=== PATIENT | female | born 1935 | race Native Hawaiian/Other Pacific Islander ===

== ENCOUNTER 2016-06-13 07:46 | Emergency (ER) | payer MEDICARE, MEDICAID ==
[2016-06-13 07:52] VITALS: BMI 27.3
[2016-06-13 07:53] VITALS: TEMP 98
[2016-06-13] MEDS ORDERED: Sodium Chloride 0.9% 1,000 ML IV SCH (08:15)
--- NOTE | 2016-06-13 08:19 | C.PDOC ---
History Of Present Illness 80 y/o female, whose PMHx includes hypothyroidism and cholecystectomy, presents to the ED complaining of dizziness x 5 days. [id number] at bedside is translating for the patient who does not speak [place]. Admits to history of vertigo and states the patient usually takes Meclizine with relief but the symptoms remain persistent. She notes that the patient lost her balance and fell which prompted their visit to the ED. She denies any loss of consciousness , head injury, nausea, vomiting, chest pain, shortness of breath, fever, ear pain, or other complaints. Time Seen by Provider: 06/13/16 07:46 Chief Complaint (Nursing): Dizziness/Lightheaded History Per: Patient, Family ([id number]) History/Exam Limitations: language barrier ([id number] translating) Onset/Duration Of Symptoms: Days (5), Gradual, Persistent Current Symptoms Are (Timing): Still Present Possible Causative Factor(s): Vertigo Fall Associated With With Symptoms: Yes Recent travel outside of the [place]: No Past Medical History Reviewed: Historical Data, Nursing Documentation, Vital Signs Vital Signs: Last Vital Signs Temp 98.0 F 06/13/16 07:52 Pulse 67 06/13/16 09:35 Resp 14 06/13/16 09:35 BP 142/70 06/13/16 09:35 Pulse Ox 97 06/13/16 10:00 - Medical History PMH: Arthritis (lbp), Back Problems, Gall Bladder Disease (CHOLECYSTECTOMY 2003) , Hypothyroidism, Osteoporosis Other PMH: vertigo Surgical History: Cholecystectomy (2003) Family History: States: No Known Family Hx - Social History Hx Tobacco Use: No Hx Alcohol Use: No Hx Substance Use: No - Immunization History Hx Tetanus Toxoid Vaccination: No Hx Influenza Vaccination: Yes Hx Pneumococcal Vaccination: No Review Of Systems Except As Marked, All Systems Reviewed And Found Negative. Constitutional: Negative for: Fever ENT: Negative for: Ear Pain Cardiovascular: Negative for: Chest Pain Respiratory: Negative for: Shortness of Breath Gastrointestinal: Negative for: Nausea, Vomiting Neurological: Positive for: Dizziness. Negative for: Other (LOC) Physical Exam - Physical Exam Appears: Non-toxic, No Acute Distress Skin: Normal Color, Warm, Dry, No Ecchymosis Head: Atraumatic, Normacephalic, No Abrasion, No Laceration Eye(s): bilateral: Normal Inspection, PERRL, EOMI Neck: Normal ROM, No Midline Cervical Tenderness, Supple Chest: Symmetrical, No Tenderness Cardiovascular: Rhythm Regular Respiratory: Normal Breath Sounds, No Rales, No Rhonchi, No Wheezing Gastrointestinal/Abdominal: Normal Exam, Soft, No Tenderness Back: Normal Inspection, No Vertebral Tenderness Extremity: Normal ROM, No Tenderness, No Swelling Neurological/Psych: Oriented x3, Normal Speech, Normal Cognition, Normal Cranial Nerves (II-XII intact), Normal Motor, Normal Sensation ED Course And Treatment - Laboratory Results Result Diagrams: 06/13/16 08:22 06/13/16 08:22 Lab Interpretation: Normal ECG: Interpreted By Me ECG Rhythm: Sinus Rhythm ECG Interpretation: Normal, No Acute Changes Rate From EC (bpm) O2 Sat by Pulse Oximetry: 97 (ra) Pulse Ox Interpretation: Normal - CT Scan/US CT Head Other Rad Studies (CT/US): Read By Radiologist (Brock Ramachandran MD), Radiology Report Reviewed CT/US Interpretation: FINDINGS: HEMORRHAGE: No intracranial hemorrhage. BRAIN : No mass effect or edema. Moderate diffuse age-appropriate cerebral atrophy. Mild periventricular white matter lucency consistent with chronic microvascular ischemic change. No evidence of acute infarct. VENTRICLES: Unremarkable. No hydrocephalus. CALVARIUM: Unremarkable. PARANASAL SINUSES: Unremarkable as visualized. No significant inflammatory changes. MASTOID AIR CELLS: Unremarkable as visualized. No inflammatory changes. OTHER FINDINGS: None. IMPRESSION: No intracranial mass, hemorrhage or evidence of acute infarct. Age related atrophy and chronic microvascular white matter ischemic change. Progress Note: Treated with IVF NSS. On re-evaluation ambulating with steady gait. Neuro intact Reassessment Condition: Improved - Physician Consult Information Physician Contacted: Sebas Maurer Outcome Of Conversation: discharge and outpatient follow up Medical Decision Making Medical Decision Making: Plan: * CT Head * EKG * Blood Work * Urinalysis * IV Fluids * * * Ambulating with steady gait, in no distress Disposition Discussed With : Sebas Maurer Doctor Will See Patient In The: Office Counseled Patient/Family Regarding: Studies Performed, Diagnosis, Need For Followup - Disposition Referrals: Sebas Maurer MD [Staff Provider] - Disposition: HOME/ ROUTINE Disposition Time: 10:00 Condition: STABLE Additional Instructions: Follow up with Dr Maurer in 2 days Continue current medications Instructions: Vertigo (ED), Dizziness (ED) - POA Present On Arrival: None - Clinical Impression Clinical Impression: Dizziness - 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 - Scribe Statement The provider has reviewed the documentation as recorded by the Scribe (Chelsea Borja) All medical record entries made by the Scribe were at my direction and personally dictated by me. I have reviewed the chart and agree that the record accurately reflects my personal performance of the history, physical exam, medical decision making, and the department course for this patient. I have also personally directed, reviewed, and agree with the discharge instructions and disposition.
[2016-06-13] MEDS ORDERED: Sodium Chloride 0.9% 1,000 ML ONE (08:23)
[2016-06-13] MEDS ORDERED: Sodium Chloride 0.9% 1,000 ML IV ONE (08:23)
[2016-06-13 08:26] LABS: BASO % 0.4 % (0.0-2.0); EOS # 0.3 K/uL (0.0-0.7); EOS % 6.2 % (0.0-4.0); HEMATOCRIT 37.7 % (34.0-47.0); LYMPH # 1.4 K/uL (1.0-4.3); LYMPH % 27.1 % (20.0-40.0); MEAN CELL VOLUME 85.1 fL (81.0-99.0); MEAN CORPUSCULAR HEMOGLOBIN 28.7 pg (27.0-31.0); MEAN CORPUSCULAR HGB CONC 33.7 g/dL (33.0-37.0); MEAN PLATELET VOLUME 8.5 fL (7.2-11.7); MONO # 0.4 K/uL (0.0-0.8); MONO % 8.2 % (0.0-10.0); RED CELL DISTRIBUTION WIDTH 14.3 % (11.5-14.5); WHITE BLOOD COUNT 5.2 K/uL (4.8-10.8)
[2016-06-13 08:33] LABS: CHLORIDE 101 mmol/L (98-107)
[2016-06-13 08:34] LABS: POTASSIUM 4.3 mmol/L (3.6-5.2); SODIUM 140 mmol/L (132-148)
[2016-06-13 08:36] LABS: ALB/GLOB RATIO 1.3 (1.0-2.1); AST/SGOT 27 U/L (14-36); BILIRUBIN,TOTAL 0.8 mg/dL (0.2-1.3); BLOOD UREA NITROGEN 11 mg/dL (7-17); CARBON DIOXIDE 28 mmol/L (22-30); GFR AFRICAN-AMERICAN > 60; TOTAL PROTEIN 7.1 g/dL (6.3-8.3)
[2016-06-13 08:37] LABS: ALKALINE PHOSPHATASE 48 U/L (38-126); ALT/SGPT 16 U/L (9-52); CALCIUM 8.6 mg/dl (8.6-10.4); GLUCOSE,RANDOM 107 mg/dL (65-105)
[2016-06-13 09:18] LABS: RBC URINE < 1 /hpf (0-3); URINE BILIRUBIN NEGATIVE (NEGATIVE); URINE BLOOD NEGATIVE (NEGATIVE); URINE COLOR Straw (YELLOW); URINE GLUCOSE (UA) NORMAL (Normal); URINE KETONE NEGATIVE (NEGATIVE); URINE LEUKOCYTE ESTERASE NEG Leu/uL (Negative); URINE PROTEIN NEGATIVE (NEGATIVE); URINE UROBILINOGEN NORMAL mg/dL (0.2-1.0); WBC URINE < 1 /hpf (0-5)
--- NOTE | 2016-06-13 09:25 | CT ---
PROCEDURE: CT HEAD WITHOUT CONTRAST. HISTORY: R/O Bleed COMPARISON: None available. TECHNIQUE: Axial computed tomography images were obtained through the head/brain without intravenous contrast. Radiation dose: Total exam DLP = 822.69 mGy-cm. FINDINGS: HEMORRHAGE: No intracranial hemorrhage. BRAIN: No mass effect or edema. Moderate diffuse age-appropriate cerebral atrophy. Mild periventricular white matter lucency consistent with chronic microvascular ischemic change. No evidence of acute infarct. VENTRICLES: Unremarkable. No hydrocephalus. CALVARIUM: Unremarkable. PARANASAL SINUSES: Unremarkable as visualized. No significant inflammatory changes. MASTOID AIR CELLS: Unremarkable as visualized. No inflammatory changes. OTHER FINDINGS: None. IMPRESSION: No intracranial mass, hemorrhage or evidence of acute infarct. Age related atrophy and chronic microvascular white matter ischemic change.
[2016-06-13 09:38] VITALS: BP 142/70; PULSE 67; RESP 14
[2016-06-13 10:00] VITALS: O2SAT 97
--- NOTE | 2016-06-14 21:37 | CARD ---
APPROVED REPORT EKG Measurement Heart [id number] <Conclusion> Normal sinus rhythm Normal ECG
== END 2016-06-13 10:32 | disposition home or self-care (01) ==
LOC: C.ER 07:46
DX: R42 Dizziness and giddiness (principal)
CPT/HCPCS: 70450; 80053; 81001; 82553; 82948; 84484; 85025; 93005; 96360; 96361; 99285; J7040

== ENCOUNTER 2018-05-29 10:43 | Outpatient (CLI) | payer MEDICARE, MEDICAID | END 2018-05-29 10:44 | disposition home or self-care (01) | LOC: C.PAT 10:43 ==

== ENCOUNTER 2018-06-11 07:56 | Day surgery (SDC) | payer MEDICARE, MEDICAID ==
[2018-05-29 11:00] VITALS: BMI 27.4
[~2018-06-11 07:56] MED LIST: Carbachol 0.01% IO ONE; Chondroitin/Hyaluronate Opth Syringe KIT (0.55 ml-0.5 ml) IO ONE; Ciprofloxacin 0.3% OPTH SOLN OS SCH; Hyaluronidase Human, Recombi 150 U/ML VIAL ONE; Ketorolac Tromethamine 0.5% Opth Soln (3 ml) OS SCH; Lactated Ringer's 500 ML IV ONE; Lidocaine 2% MPF (5 ml) Inj ONE; Phenylephrine 2.5% Opht Soln OS SCH; Povidone Iodine Ophthalmic 5% Soln ONE; Tetracaine 0.5% Ophth (OR ONLY) ONE; Tobramycin/Dexamethasone OPHT OINT ONE; Tropicamide 1% Opht SOLUTION OS SCH; acetaZOLAMIDE 500 mg SR Cap PO ONE
[2018-06-11] MEDS ORDERED: Lactated Ringer's 1,000 ML IV ONE (09:12)
[2018-06-11] MEDS ORDERED: Midazolam 2 MG/2 ML VIAL ONE (10:40)
[2018-06-11 11:27] VITALS: O2SAT 99
[2018-06-11] MEDS ORDERED: acetaZOLAMIDE 500 mg SR Cap PO ONE (11:29)
[2018-06-11 11:57] VITALS: BP 159/88; PULSE 68; RESP 14; TEMP 98.3
--- NOTE | 2018-06-11 22:41 | OP ---
PROCEDURE DATE: 06/11/2018 PREOPERATIVE DIAGNOSIS: Mature cataract, left eye. POSTOPERATIVE DIAGNOSIS: Mature cataract, left eye. OPERATIVE PROCEDURE: Phacoemulsification, left eye, insertion of posterior chamber lens implant. SURGEON: Ted Horne MD CO-SURGEON: Amos Figueredo MD ANESTHESIA: Local with IV sedation. DESCRIPTION OF PROCEDURE: The patient was brought into the operating room, placed in supine position, prepped and draped in the usual fashion for ophthalmic surgery. Lid speculum was inserted, lids and exposing globe. A side-port incision was made superiorly and inferiorly with a disposable sharp blade. Anterior chamber was filled with Viscoat. A near clear corneal incision was made temporally with a 2.75-mm keratome. Capsulorrhexis was then performed with Utrata forceps. Hydrodissection carried out with balanced salt solution. Nucleus was phacoemulsified. Remaining cortical fragments were removed with a split irrigation and aspiration system. The capsular sac was filled with Provisc. A posterior chamber lens was then injected into the capsular sac and rotated into horizontal position. Provisc was aspirated out of the anterior chamber. The pupil was constricted with Miochol. The wound was found to be watertight. Topical Betadine, Timoptic, and TobraDex ointment and pressure patch were applied. The patient tolerated the procedure well. Ted Horne MD
== END 2018-06-11 12:08 | disposition home or self-care (01) ==
LOC: C.SDS 07:56
PROVIDERS: ATTEND Ophthalmology
DX: H25.12 Age-related nuclear cataract, left eye (principal)
CPT/HCPCS: 66984; C1713; J2250; J3010; J3470; J7120; V2632

== ENCOUNTER 2018-07-23 07:27 | Day surgery (SDC) | payer MEDICARE, MEDICAID ==
[~2018-07-23 07:27] MED LIST changes: -Carbachol 0.01% IO ONE; -Chondroitin/Hyaluronate Opth Syringe KIT (0.55 ml-0.5 ml) IO ONE; +Ciprofloxacin 0.3% OPTH SOLN OD SCH; -Ciprofloxacin 0.3% OPTH SOLN OS SCH; -Hyaluronidase Human, Recombi 150 U/ML VIAL ONE; +Ketorolac Tromethamine 0.5% Opth Soln (3 ml) OD SCH; -Ketorolac Tromethamine 0.5% Opth Soln (3 ml) OS SCH; -Lidocaine 2% MPF (5 ml) Inj ONE; +Phenylephrine 2.5% Opht Soln OD SCH; -Phenylephrine 2.5% Opht Soln OS SCH; -Povidone Iodine Ophthalmic 5% Soln ONE; -Tetracaine 0.5% Ophth (OR ONLY) ONE; -Tobramycin/Dexamethasone OPHT OINT ONE; +Tropicamide 1% Opht SOLUTION OD SCH; -Tropicamide 1% Opht SOLUTION OS SCH
[2018-07-23] MEDS ORDERED: Carbachol 0.01% IO ONE (08:04)
[2018-07-23] MEDS ORDERED: Povidone Iodine Ophthalmic 5% Soln ONE (08:04)
[2018-07-23] MEDS ORDERED: Chondroitin/Hyaluronate Opth Syringe KIT (0.55 ml-0.5 ml) IO ONE (08:04)
[2018-07-23] MEDS ORDERED: Hyaluronidase Human, Recombi 150 U/ML VIAL ONE (08:04)
[2018-07-23] MEDS ORDERED: Tobramycin/Dexamethasone OPHT OINT ONE (08:04)
[2018-07-23] MEDS ORDERED: Lactated Ringer's 1,000 ML IV ONE (08:51)
[2018-07-23 09:22] VITALS: BMI 26.9
[2018-07-23] MEDS: Chondroitin/Hyaluronate 40 mg/ml-30 mg/ml Ophth Syringe (0.5 ml) IO ONE ×2 (10:57→11:30)
[2018-07-23] MEDS ORDERED: Hyaluronate Sodium 10 mg/ml Ophth Syringe ONE (11:25)
[2018-07-23] MEDS ORDERED: acetaZOLAMIDE 500 mg SR Cap PO ONE (12:00)
[2018-07-23 12:12] VITALS: PULSE 75; TEMP 97.9; O2SAT 100
[2018-07-23 12:42] VITALS: BP 131/65; RESP 17
--- NOTE | 2018-07-23 14:01 | OP ---
PROCEDURE DATE: 07/23/2018 PREOPERATIVE DIAGNOSIS: Mature cataract, right eye. POSTOPERATIVE DIAGNOSIS: Mature cataract, right eye. PROCEDURE: Phacoemulsification, right eye, with insertion of posterior chamber lens implant. SURGEON: Ted Horne MD CO-SURGEON: Amos Figueredo MD ANESTHESIA TYPE: Local IV sedation. PROCEDURE: The patient was brought into the operating room, placed in supine position, prepped and draped in the usual fashion for ophthalmic surgery. Lid speculum was inserted, lids and exposing globe. A side-port incision was made superiorly and inferiorly with a disposable sharp blade. Anterior chamber was filled with Viscoat. A near clear corneal incision was made temporally with a 2.75-mm keratome. Capsulorrhexis was then performed with Utrata forceps. Hydrodissection carried out with balanced salt solution. Nucleus was phacoemulsified. Remaining cortical fragments were removed with a split irrigation and aspiration system. The capsular sac was filled with Provisc. A posterior chamber lens was then injected into the capsular sac and rotated into horizontal position. Provisc was aspirated out of the anterior chamber. The pupil was constricted with Miochol. The wound was found to be watertight. Topical Betadine, Timoptic, and TobraDex ointment and pressure patch were applied. The patient tolerated the procedure well. Ted Horne MD
== END 2018-07-23 12:35 | disposition home or self-care (01) ==
LOC: C.SDS 07:27
PROVIDERS: ATTEND Ophthalmology
DX: H25.9 Unspecified age-related cataract (principal); E03.9 Hypothyroidism, unspecified; K21.9 Gastro-esophageal reflux disease without esophagitis
CPT/HCPCS: 66984; J3010; J3470; J7120; V2632